=== PATIENT | male | born 1945 | race Caucasian/White ===

== ENCOUNTER 2023-07-05 11:25 | Emergency (ER) | payer MEDICARE, SELFPAY ==
[2023-07-05 11:32] VITALS: BP 98/55; PULSE 64; RESP 20; TEMP 37.1; O2SAT 94
[2023-07-05 11:41] VITALS: BP 98/55; PULSE 64; RESP 20; TEMP 37.1; O2SAT 94
--- NOTE | 2023-07-05 11:53 | ED.GENADULT ---
HPI - General Adult General Chief complaint: Upper Respiratory Infection Stated complaint: cold Source: patient and family Mode of arrival: ambulatory Limitations: no limitations History of Present Illness HPI narrative: Patient presents for evaluation of sick symptoms for last week. Symptoms include generalized body aches, chills, cough, mild shortness of breath and diarrhea. No fever, nausea or vomiting. His and another family member have had similar symptoms recently. He has not been taking any medications to assist with the symptoms. He has an underlying history of COPD but quit smoking 30 years ago. He has not been using his albuterol inhaler. Related Data Home Medications Medication Instructions Recorded Confirmed Humira 07/05/23 Lantus U-100 Insulin 07/05/23 diltiazem HCl 180 mg capsule,24 mg PO 07/05/23 hr,extended release (Tiadylt ER) lansoprazole 30 mg capsule,delayed mg 07/05/23 release levetiracetam 500 mg tablet mg PO 07/05/23 lovastatin 40 mg tablet mg 07/05/23 metoprolol succinate 50 mg mg PO 07/05/23 tablet,extended release 24 hr midodrine 2.5 mg tablet mg 07/05/23 Allergies Allergy/AdvReac Type Severity Reaction Status Date / Time VÍCTOR Inhibitors Allergy Unknown Verified 07/05/23 11:40 methotrexate Allergy Other Verified 07/05/23 11:40 Review of Systems Review of Systems: CONSTITUTIONAL: Reports chills. Denies fever or sweats. EYES: Denies visual changes, redness, or discharge. ENT: Denies rhinorrhea, congestion, sore throat, or otalgia. CARDIOVASCULAR: Denies chest pain, palpitations, or edema. RESPIRATORY: Reports cough and shortness of breath GASTROINTESTINAL: Reports diarrhea. Denies abdominal pain, nausea, vomiting, or diarrhea. GENITOURINARY: Denies dysuria or hematuria. SKIN: Denies rash or itching. MUSCULOSKELETAL: Reports generalized body aches NEUROLOGIC: Denies headache, numbness, dizziness, or weakness. PSYCHIATRIC: Denies anxiety or depression. [facility] Past Medical History Medical History COPD (chronic obstructive pulmonary disease) Surgical History Surgical History No pertinent past surgical history Family History Family History Mother Family history non-contributory Social History Social History (Updated 07/05/23 @ 11:[address] [facility], ) Smoking status: Former smoker Tobacco type: cigarettes Substance use: never Living arrangements: with family Gender identity (if verbalized by the patient): Male Sexual Orientation (if Verbalized by the Patient): Straight or Heterosexual Spiritual care concerns: No Exam Narrative: GENERAL: Well-appearing, well-nourished, and in no acute distress. HEAD: Normocephalic, atraumatic. EYES: PERRLA and EOMI. ENT: Nares clear, no rhinorrhea or epistaxis. Mucous membranes moist. Oropharynx without tonsillar hypertrophy exudate or other lesions. Bilateral TMs pearly rondon nonbulging NECK: Supple. No adenopathy or masses. No carotid bruits or JVD CHEST: No respiratory distress. Wheezing noted in right lung funes posteriorly HEART: Regular rate and rhythm. No murmur heard. Normal peripheral pulses. ABDOMEN: Soft, nontender, nondistended, normal active bowel sounds. EXTREMITIES: Normal range of motion. No edema. SKIN: Warm, dry, no rash. NEURO: No focal deficits. Alert and oriented x3. PSYCH: Normal mood and affect. Course Course Emergency Course: This is a 78-year-old male who presented for evaluation of cough. COVID positive. Given a shot of Solu-Medrol while here. Will discharge with prednisone. Saturations are normal. Opted to forego treatment with Paxlovid due to potential for [id number] interactions and potential for rebound. Increase hydration. OTC meds for symptom management.
[2023-07-05] MEDS: methylPREDNISolone SOD SUCC 125 MG VIAL IM (12:06)
--- NOTE | 2023-07-05 12:16 | PC.NURSE ---
Breathing treatment and x-ray cancelled after covid turned positive.
== END 2023-07-05 12:16 | disposition home or self-care (01) ==
PROVIDERS: Emergency Provider Nurse Practitioner; PCP Internal Medicine
DX: U07.1 COVID-19 (principal); Z87.891 Personal history of nicotine dependence; J44.9 Chronic obstructive pulmonary disease, unspecified
CPT/HCPCS: 87426; 87804; 96372; 99213; G0463; J2930